=== PATIENT | male | born 1985 | race Caucasian/White ===

== ENCOUNTER → 2018-09-28 15:32 | Outpatient (CLI) | payer OTHER, SELFPAY ==
--- NOTE | 2018-09-28 15:37 | DI.RAD.S_ITS ---
PROCEDURE: XR SHOULDER LT MIN 2V INDICATIONS: LEFT SHOULDER PAIN TECHNIQUE: 3 views of the shoulder were acquired. COMPARISON: [facility], CR, XR SHOULDER MIN 2VW RT, 08/31/2016, 20:01. FINDINGS: Bones: No fractures or dislocations. No suspicious bony lesions. Visualized ribs appear intact. Left shoulder calcific tendinitis. Glenohumeral degenerative spurring Soft tissues: No suspicious soft tissue calcifications. IMPRESSION: Left shoulder calcific tendinitis Dictated by: Wade Cain M.D. on 09/28/2018 at 16:33 Approved by: Wade Cain M.D. on 09/28/2018 at 16:35
== END ==
PROVIDERS: Family Provider Family Medicine; PCP Family Medicine; Visit Provider Student in an Organized Health Care Education/Training Program
DX: M25.512 Pain in left shoulder (principal); M75.32 Calcific tendinitis of left shoulder
CPT/HCPCS: 73030

== ENCOUNTER → 2024-12-08 07:30 | Outpatient (CLI) | payer BC, SELFPAY ==
[2024-12-08 08:27] LABS: Influenza A - CEPHEID Flu A NEGATIVE (NEGATIVE); Influenza B - CEPHEID Flu B NEGATIVE (NEGATIVE)
[2024-12-08 10:27] LABS: COVID-19 CEPHEID 4-PLEX PCR Negative (Negative)
== END ==
PROVIDERS: Family Provider Family Medicine; PCP Family Medicine; Visit Provider Nurse Practitioner Family
DX: Z20.828 Contact with and (suspected) exposure to other viral communicable diseases (principal)
CPT/HCPCS: 87637

== ENCOUNTER 2025-01-15 14:56 | Emergency (ER) | payer BC, SELFPAY ==
[2025-01-15 15:00] VITALS: BP 150/88; PULSE 70; RESP 16; TEMP 36.1; O2SAT 100; BMI 32.9
--- NOTE | 2025-01-15 15:06 | DI.RAD.S_ITS ---
PROCEDURE: XR FINGER LT MIN 2V INDICATIONS: puncture with drill bit TECHNIQUE: AP hand, 2 views of the 3 finger(s) acquired. COMPARISON: None. FINDINGS: Bones: No fractures or dislocations. No suspicious bony lesions. Soft tissues: No suspicious soft tissue calcifications. IMPRESSION: No acute bony abnormality. No radiopaque foreign body Approved by: Bal Sahni M.D. on 01/15/2025 at 14:56
--- NOTE | 2025-01-15 18:54 | ED.UPPEXIN ---
HPI - Extremity Injury (Upper) General Chief Complaint: Extremity Injury, Upper Stated Complaint: L middle finger injury from drill Time Seen by Provider: 01/15/25 17:57 Source: patient Mode of arrival: Ambulatory History of Present Illness HPI narrative: 39-year-old gentleman with significant past medical history presents for left middle finger injury after using a drill with screws the drill bit slipped and punctured and his left middle finger. He is able to move in all direction and has full sensation on the tip and on the palmar side. Other than what is stated 14 point review of system is negative. Related Data Home Medications ?Medication ?Instructions ?Recorded ?Confirmed sertraline 100 mg tablet 100 mg PO DAILY 12/08/24 12/08/24 trazodone 50 mg tablet 50 mg PO ONCE PM 12/08/24 12/08/24 Previous Rx's ?Medication ?Instructions ?Recorded cephalexin 500 mg capsule 500 mg PO Q6H 7 days #28 caps 01/15/25 Allergies Allergy/AdvReac Type Severity Reaction Status Date / Time Penicillins AdvReac Intermediate Hives Verified 01/15/25 15:00 Review of Systems Review of Systems ROS Unobtainable: All systems reviewed & are unremarkable except as noted in HPI and below Patient History Social History Smoking Status: Current every day smoker Smoking Status: Current every day smoker tobacco type: vaping Exam Narrative Exam Narrative: GENERAL: [39] year old patient appears stated age. Well-developed patient, in mild distress. HEAD: Atraumatic. Normocephalic. EYES: Pupils equal round and reactive. Extraocular motions intact. No scleral icterus. No injection or drainage. EXTREMITIES: Left middle finger PIP joint open wounds with superficial laceration jagged and irregular, patient has full range of motion of the left middle finger in flexion extension motor sensory intact +2 radial falls cap refill less than 2 seconds and full range of motion of all fingers of the left hand and thumb BACK: Nontender without deformity or crepitance. No flank tenderness. NEURO: AOx3. SKIN: No rash or erythema of visible areas Initial Vital Signs Initial Vital Signs: Vital Signs Temperature 97.0 F L 01/15/25 15:00 Pulse Rate 70 01/15/25 15:00 Respiratory Rate 16 01/15/25 15:00 Blood Pressure 150/88 H 01/15/25 15:00 Pulse Oximetry 100 01/15/25 15:00 Oxygen Delivery Method Room Air 01/15/25 15:00 Course Orders Ordered: ED Orders 01/15/25 15:06 XR finger LT min 2V Stat Vital Signs Vital signs: Vital Signs - 8 hr 01/15/25 15:00 Temperature 97.0 F L Pulse Rate 70 Respiratory Rate 16 Blood Pressure 150/88 H Pulse Oximetry 100 Oxygen Delivery Method Room Air MDM - Extremity Injury (Upper) Imaging Data Extremity x-ray #1: Radiologist's Impression: [address] [address] XRay Report Signed Patient: Ziggy Moyer MR#: [id number] : 1985 Acct:[id number] Age/Sex: 39 / M Date of Service: 01/15/25 Loc: ED Accession Number: [id number] Procedure: XR finger LT min 2V Ordering Provider: Kathy Cardenas D.O. PROCEDURE: XR FINGER LT MIN 2V INDICATIONS: puncture with drill bit TECHNIQUE: AP hand, 2 views of the 3 finger(s) acquired. COMPARISON: None. FINDINGS: Bones: No fractures or dislocations. No suspicious bony lesions. Soft tissues: No suspicious soft tissue calcifications. IMPRESSION: No acute bony abnormality. No radiopaque foreign body Approved by: Bal Sahni M.D. on 01/15/2025 at 14:56 [facility] Narrative Medical decision making narrative: Vital signs, nurse triage note, medication list, previous ER visits, and all imaging studies reviewed. X-ray showed no acute process. No foreign body Wound irrigated, Dermabond and Steri-Strips applied to open wound, tetanus updated on today's visit, cephalexin given 1st dose here DC home on cephalexin. Differential diagnosis fracture, dislocation, foreign body, cellulitis, tetanus Discharge Plan Departure Patient Disposition: Home Clinical Impression: Finger injury Qualifiers: Encounter type: initial encounter Laterality: left Qualified Code(s): S69.92XA - Unspecified injury of left wrist, hand and finger(s), initial encounter Instructions: Skin Wound Activity Restrictions/Additional Instructions: Return with new or worsening symptoms. Take your medicine as directed. Follow up with PCP next week if no improvement in symptoms. Prescriptions: New cephalexin 500 mg capsule 500 mg PO Q6H 7 Days Qty: 28 0RF No Action trazodone 50 mg tablet 50 mg PO ONCE PM sertraline 100 mg tablet 100 mg PO DAILY Referrals: Karthik Burr MD [Primary Care Provider, Family Practice] Stand Alone Forms: Patient Portal/API
[2025-01-15 19:21] VITALS: BP 132/82; PULSE 56; RESP 16; O2SAT 98
== END 2025-01-15 19:26 | disposition home or self-care (01) ==
PROVIDERS: Emergency Provider Family Medicine; Family Provider Family Medicine; PCP Family Medicine
DX: S69.92XA Unspecified injury of left wrist, hand and finger(s), initial encounter (principal); X58.XXXA Exposure to other specified factors, initial encounter
CPT/HCPCS: 73140; 99283